=== PATIENT | female | born 1940 | race Caucasian/White ===

== ENCOUNTER 2018-08-16 11:04 | Day surgery (SDC) | payer MEDICARE ==
[~2018-08-16] VITALS: Ht 172.7 cm; Wt 62.0 kg
[2018-08-16] MEDS ORDERED: SODIUM CHLORIDE 0.9% 1,000 ML IV ONE (12:09)
[2018-08-16] MEDS ORDERED: METO25TA91 PO (12:26)
[2018-08-16] MEDS ORDERED: TRIA60LO9 TP (12:26)
[2018-08-16] MEDS ORDERED: IBUP200C8 PO (12:26)
[2018-08-16 12:51] LABS: BASOPHILS # (AUTO) 0.03 x10^3/uL (0-0.1); BASOPHILS % (AUTO) 1 % (0-1); EOSINOPHILS # (AUTO) 0.12 x10^3/uL (0-0.4); EOSINOPHILS % (AUTO) 2 % (1-7); LYMPHOCYTES % (AUTO) 20 % (22-44); MD NO; MEAN CORPUSCULAR HEMOGLOBIN 31.9 pg (27.0-34.8); MEAN CORPUSCULAR HGB CONC 33.3 g/dL (32.4-35.8); MEAN CORPUSCULAR VOLUME 95.6 fL (80-100); MEAN PLATELET VOLUME 9.4 fL (7.4-10.4); MONOCYTES # (AUTO) 0.46 x10^3/uL (0.2-0.8); MONOCYTES % (AUTO) 8 % (2-9); NEUTROPHILS # (AUTO) 3.94 x10^3/uL (1.8-6.8); NEUTROPHILS % (AUTO) 70 % (42-75); PLATELET COUNT 195 x10^3/uL (130-400); RED BLOOD COUNT 4.27 x10^6/uL (3.82-5.3); RED CELL DISTRIBUTION WIDTH 13.9 % (9.6-15.2)
[2018-08-16] MEDS ORDERED: MIDAZOLAM 1 MG/ML, 2ML ONE (14:30)
[2018-08-16] MEDS ORDERED: FENTANYL PF 100 MCG/2ML ONE (14:31)
[2018-08-16] MEDS ORDERED: VERAPAMIL 2.5 MG/ML, 2ML ONE (14:31)
[2018-08-16] MEDS ORDERED: HEPARIN 1,000 UNITS/ML, 10ML ONE (14:32)
[2018-08-16] MEDS ORDERED: SODIUM CHLORIDE 0.9% 1,000 ML IV SCH (15:20)
== END 2018-08-16 17:05 | disposition home or self-care (01) ==
LOC: EDSEX 11:04 → CACL 11:04
PROVIDERS: ATTEND Internal Medicine Cardiovascular Disease
DX: I20.8 Other forms of angina pectoris (principal); I47.1 Supraventricular tachycardia; Z98.890 Other specified postprocedural states
CPT/HCPCS: 36415; 85025; 93458; 99156; C1769; C1894; J1644; J2250; J3010; Q9967

== ENCOUNTER 2019-07-20 12:13 | Outpatient (CLI) | payer MEDICARE ==
[~2019-07-20 12:13] MED LIST: IBUP200C8 PO; METO25TA91 PO; TRIA60LO9 TP
[2019-07-20] MEDS ORDERED: OMNIPAQUE 350 MG/ML, 150 ML BOTTLE ONE (13:45)
[2019-07-20] MEDS ORDERED: DIGO125T76 PO (14:44)
[2019-07-20] MEDS ORDERED: aspirin PO (14:44)
[2019-07-20] MEDS ORDERED: FLEC50TA25 PO (14:44)
[2019-07-21] MEDS ORDERED: APIX5TAB PO (06:46)
== END 2019-07-20 23:59 | disposition home or self-care (01) ==
LOC: CFH 12:13
PROVIDERS: ATTEND Internal Medicine Cardiovascular Disease
DX: I48.91 Unspecified atrial fibrillation (principal); I47.1 Supraventricular tachycardia; Z82.49 Family history of ischemic heart disease and other diseases of the circulatory system
CPT/HCPCS: 71046; 75572; Q9967

== ENCOUNTER 2019-07-21 06:30 | Observation (INO) | payer MEDICARE ==
[2019-07-20 15:01] LABS: ALANINE AMINOTRANSFERASE 20 U/L (12-78); ALBUMIN 4.1 g/dL (3.4-5.0); ANION GAP 2 mmol/L (5-15); CHLORIDE 106 mmol/L (98-107); CREATININE 0.91 mg/dL (0.55-1.02)
[2019-07-20 15:04] LABS: ALKALINE PHOSPHATASE 82 U/L (45-117); BILIRUBIN,TOTAL 0.5 mg/dL (0.2-1.0); TOTAL PROTEIN 7.2 g/dL (6.4-8.2)
[2019-07-20 15:06] LABS: BASOPHILS # (AUTO) 0.07 x10^3/uL (0-0.1); BASOPHILS % (AUTO) 1 % (0-1); EOSINOPHILS # (AUTO) 0.19 x10^3/uL (0-0.4); EOSINOPHILS % (AUTO) 3 % (1-7); LYMPHOCYTES # (AUTO) 1.33 x10^3/uL (1-3.4); LYMPHOCYTES % (AUTO) 24 % (22-44); MD NO; MEAN CORPUSCULAR HEMOGLOBIN 33.3 pg (27.0-34.8); MEAN CORPUSCULAR HGB CONC 32.9 g/dL (32.4-35.8); MEAN CORPUSCULAR VOLUME 101.1 fL (80-100); MEAN PLATELET VOLUME 8.7 fL (7.4-10.4); MONOCYTES # (AUTO) 0.46 x10^3/uL (0.2-0.8); MONOCYTES % (AUTO) 8 % (2-9); NEUTROPHILS # (AUTO) 3.51 x10^3/uL (1.8-6.8); NEUTROPHILS % (AUTO) 63 % (42-75); PLATELET COUNT 243 x10^3/uL (130-400); RED BLOOD COUNT 4.44 x10^6/uL (3.82-5.3); RED CELL DISTRIBUTION WIDTH 14.2 % (9.6-15.2)
[~2019-07-21] VITALS: Ht 172.7 cm; Wt 60.9 kg
[~2019-07-21 06:30] MED LIST changes: +DIGO125T76 PO; +FLEC50TA25 PO; +aspirin PO
[2019-07-21] MEDS ORDERED: SODIUM CHLORIDE 0.9% 1,000 ML IV SCH (06:43)
[2019-07-21] MEDS ORDERED: APIX5TAB PO (06:46)
[2019-07-21] MEDS ORDERED: LIDOCAINE 1%, 20ML ONE (07:01)
[2019-07-21] MEDS ORDERED: MIDAZOLAM 1 MG/ML, 2ML ONE (08:05)
[2019-07-21] MEDS ORDERED: FENTANYL PF 250 MCG/5ML ONE (08:05)
[2019-07-21] MEDS ORDERED: HEPARIN 1,000 UNITS/ML, 30ML ONE (08:06)
[2019-07-21] MEDS ORDERED: PROPOFOL 10 MG/ML, 20ML ONE (08:06)
[2019-07-21] MEDS ORDERED: ONDANSETRON 2MG/ML, 2ML ONE (08:06)
[2019-07-21] MEDS ORDERED: EPHEDRINE 50 MG/ML, 1ML ONE (08:06)
[2019-07-21] MEDS ORDERED: SUCCINYLCHOLINE 20 MG/ML, 10ML ONE (08:08)
[2019-07-21] MEDS ORDERED: ROCURONIUM 10MG/ML,5ML ONE (08:09)
[2019-07-21] MEDS ORDERED: PHENYLEPHRINE 10 MG/ML ONE (08:25)
[2019-07-21] MEDS ORDERED: DEXAMETHASONE 4 MG/ML, 1ML ONE ×2 (08:40)
[2019-07-21] MEDS ORDERED: ISOPROTERENOL 0.2MG/ML, 5ML ONE (08:58)
[2019-07-21] MEDS ORDERED: ADENOSINE 6 MG/2 ML ONE ×2 (09:07)
[2019-07-21] MEDS ORDERED: VASOPRESSIN 20 UNIT/ML, 1ML ONE (10:33)
[2019-07-21] MEDS ORDERED: APIXABAN 5 MG TABLET ONE (11:30)
[2019-07-21] MEDS: APIXABAN 5 MG TABLET PO SCH ×3 (12:00→21:24)
[2019-07-21] MEDS ORDERED: EPHEDRINE 50 MG/ML, 1ML IVPush PRN (12:00)
[2019-07-21] MEDS ORDERED: hydrALAzine 20 MG/ML, 1ML IV PRN (12:00)
[2019-07-21] MEDS ORDERED: FENTANYL PF 100 MCG/2ML IV PRN (12:00)
[2019-07-21] MEDS ORDERED: OXYcodone 5 MG/5 ML ORAL.SOL UDC PO PRN (12:00)
[2019-07-21] MEDS ORDERED: MEPERIDINE/PF 25MG/ML,1ML IVPush PRN (12:00)
[2019-07-21] MEDS ORDERED: LABETALOL 5MG/ML, 20ML IV PRN (12:00)
[2019-07-21] MEDS ORDERED: HYDROmorphone 2 MG/ML, 1ML IVPush PRN (12:00)
[2019-07-21] MEDS ORDERED: MIDAZOLAM 1 MG/ML, 2ML IV PRN (12:00)
[2019-07-21] MEDS ORDERED: ALBUTEROL SULFATE 2.5 MG/3 ML NPPB PRN (12:00)
[2019-07-21] MEDS ORDERED: PROMETHAZINE 12.5 MG SUPP PR PRN (12:00)
[2019-07-21] MEDS ORDERED: ONDANSETRON ODT 8 MG PO PRN (12:00)
[2019-07-21] MEDS ORDERED: ACETAMINOPHEN 325 MG TABLET PO PRN (12:00)
[2019-07-21] MEDS ORDERED: HALOPERIDOL 5 MG/ML IV PRN (12:00)
[2019-07-21] MEDS ORDERED: DIAZEPAM 5 MG/ML, 2ML IVPush PRN (12:00)
[2019-07-21] MEDS ORDERED: PROMETHAZINE 25 MG/ML, 1ML IV PRN (12:00)
[2019-07-21] MEDS ORDERED: ONDANSETRON 2MG/ML, 2ML IV PRN (12:00)
[2019-07-21] MEDS: SOTALOL 80MG TABLET PO SCH ×2 (13:35→17:50)
[2019-07-21 15:15] VITALS: BP 114/71
[2019-07-21] MEDS ORDERED: SOTALOL 80MG TABLET PO SCH (18:00)
[2019-07-21 20:05] VITALS: BP 106/67
[2019-07-22] MEDS: ACETAMINOPHEN 325 MG TABLET PO PRN ×3 (00:29→13:36)
[2019-07-22 01:09] VITALS: BP 99/59
[2019-07-22] MEDS: SOTALOL 80MG TABLET PO SCH (05:39)
[2019-07-22 07:58] VITALS: BP 102/62
[2019-07-22] MEDS: APIXABAN 5 MG TABLET PO SCH (08:31)
[2019-07-22] MEDS ORDERED: ONDANSETRON 2MG/ML, 2ML IVPush PRN (10:30)
[2019-07-22 12:58] VITALS: BP 109/66
[2019-07-22] MEDS ORDERED: SOTA80TA18 PO (14:45)
== END 2019-07-22 16:20 | disposition home or self-care (01) ==
LOC: CACL 06:30 → ORIP 11:41 → 5SO 15:12 → DCLOUNGE 07-22 16:20
PROVIDERS: ADMIT Internal Medicine Cardiovascular Disease; ATTEND Internal Medicine Cardiovascular Disease
DX: I48.91 Unspecified atrial fibrillation (principal); I47.1 Supraventricular tachycardia
CPT/HCPCS: 36415; 80053; 85025; 85347; 86850; 86900; 93005; 93306; 93312; 93321; 93325; 93613; 93655; 93656; 93657; 93662; C1730; C1731; C1759; C1766; C1893; C1894; C2630; G0378; J0153; J0330; J1100; J1644; J2250; J2370; J2405; J2704; J3010; J3490

== ENCOUNTER 2020-08-16 10:13 | Day surgery (SDC) | payer MEDICARE ==
[~2020-08-16] VITALS: Ht 172.7 cm; Wt 61.4 kg
[~2020-08-16 10:13] MED LIST changes: +APIX5TAB PO; +SOTA80TA18 PO
[2020-08-16] MEDS ORDERED: PROPOFOL 10 MG/ML, 20ML ONE (10:34)
[2020-08-16 10:48] VITALS: BP 145/106
[2020-08-16] MEDS ORDERED: SOTA120T26 PO (10:57)
[2020-08-16] MEDS ORDERED: LEVO50TA5 PO (10:57)
[2020-08-16] MEDS ORDERED: SODIUM CHLORIDE 0.9% 1,000 ML IV ONE (11:00)
[2020-08-16 11:11] LABS: ANION GAP 2 mmol/L (5-15); CALCIUM 9.2 mg/dL (8.5-10.1); CHLORIDE 110 mmol/L (98-107)
[2020-08-16] MEDS ORDERED: MIDAZOLAM 1 MG/ML, 2ML ONE (13:02)
== END 2020-08-16 14:37 | disposition home or self-care (01) ==
LOC: CACL 10:13
PROVIDERS: ATTEND Internal Medicine Cardiovascular Disease
DX: I48.91 Unspecified atrial fibrillation (principal); I34.0 Nonrheumatic mitral (valve) insufficiency; I47.1 Supraventricular tachycardia; K21.9 Gastro-esophageal reflux disease without esophagitis; Z79.01 Long term (current) use of anticoagulants; Z79.899 Other long term (current) drug therapy; Z20.828 Contact with and (suspected) exposure to other viral communicable diseases
CPT/HCPCS: 36415; 80048; 87635; 92960; 93312; 93321; 93325; J2250; J2704

== ENCOUNTER 2020-11-08 10:04 | Day surgery (SDC) | payer MEDICARE ==
[~2020-11-08] VITALS: Ht 172.7 cm; Wt 59.0 kg
[~2020-11-08 10:04] MED LIST changes: +LEVO50TA5 PO; +SOTA120T26 PO
[2020-11-08 10:25] VITALS: BP 138/95
[2020-11-08] MEDS ORDERED: FLEC50TA25 PO (10:37)
[2020-11-08] MEDS ORDERED: DILT240C77 PO (10:37)
[2020-11-08] MEDS ORDERED: FLECAINIDE 100MG TABLET ONE (10:40)
[2020-11-08 10:50] LABS: ANION GAP 6 mmol/L (5-15); CALCIUM 9.4 mg/dL (8.5-10.1); CHLORIDE 109 mmol/L (98-107); CREATININE 1.04 mg/dL (0.55-1.02)
[2020-11-08] MEDS ORDERED: PROPOFOL 10 MG/ML, 20ML ONE (11:40)
== END 2020-11-08 12:56 | disposition home or self-care (01) ==
LOC: CACL 10:04
PROVIDERS: ATTEND Internal Medicine Cardiovascular Disease
DX: I48.0 Paroxysmal atrial fibrillation (principal); Z79.01 Long term (current) use of anticoagulants; Z79.890 Hormone replacement therapy; Z79.899 Other long term (current) drug therapy
CPT/HCPCS: 36415; 80048; 92960; J2704

== ENCOUNTER 2021-01-16 06:17 | Observation (INO) | payer MEDICARE ==
[~2021-01-16] VITALS: Ht 172.7 cm; Wt 59.5 kg
[~2021-01-16 06:17] MED LIST changes: +DILT240C77 PO
[2021-01-16 06:55] VITALS: BP 150/87
[2021-01-16] MEDS ORDERED: SODIUM CHLORIDE 0.9% 1,000 ML IV SCH (07:00)
[2021-01-16 07:33] LABS: BASOPHILS % (AUTO) 2 % (0-1); EOSINOPHILS % (AUTO) 5 % (1-7); LYMPHOCYTES % (AUTO) 30 % (22-44); MD NO; MEAN CORPUSCULAR HEMOGLOBIN 33.1 pg (27.0-34.8); MEAN CORPUSCULAR HGB CONC 34.3 g/dL (32.4-35.8); MEAN PLATELET VOLUME 8.4 fL (7.4-10.4); MONOCYTES % (AUTO) 10 % (2-9); NEUTROPHILS % (AUTO) 53 % (42-75); PLATELET COUNT 224 x10^3/uL (130-400); RED BLOOD COUNT 4.41 x10^6/uL (3.82-5.3); RED CELL DISTRIBUTION WIDTH 13.5 % (9.6-15.2)
[2021-01-16 07:41] LABS: ANION GAP 4 mmol/L (5-15); CALCIUM 9.3 mg/dL (8.5-10.1); CHLORIDE 110 mmol/L (98-107); CREATININE 1.07 mg/dL (0.55-1.02)
[2021-01-16] MEDS ORDERED: LIDOCAINE 1%, 20ML ONE (08:21)
[2021-01-16] MEDS ORDERED: FENTANYL PF 250 MCG/5ML ONE (08:32)
[2021-01-16] MEDS ORDERED: MIDAZOLAM 1 MG/ML, 2ML ONE (08:32)
[2021-01-16] MEDS ORDERED: EPHEDRINE 50 MG/ML, 1ML ONE (08:43)
[2021-01-16] MEDS ORDERED: DEXAMETHASONE 4 MG/ML, 1ML ONE (08:59)
[2021-01-16] MEDS ORDERED: SUCCINYLCHOLINE 20 MG/ML, 10ML ONE (08:59)
[2021-01-16] MEDS ORDERED: HEPARIN 1,000 UNITS/ML, 10ML ONE (08:59)
[2021-01-16] MEDS ORDERED: ROCURONIUM 10MG/ML,5ML ONE (08:59)
[2021-01-16] MEDS ORDERED: PROPOFOL 10 MG/ML, 20ML ONE (08:59)
[2021-01-16] MEDS ORDERED: GLYCOPYRROLATE 0.2MG/1ML, 5ML ONE (10:42)
[2021-01-16] MEDS ORDERED: NEOSTIGMINE 1 MG/ML, 10ML ONE (10:42)
[2021-01-16] MEDS ORDERED: ALBUTEROL SULFATE 2.5 MG/3 ML NPPB PRN (11:00)
[2021-01-16] MEDS ORDERED: hydrALAzine 20 MG/ML, 1ML IV PRN (11:00)
[2021-01-16] MEDS ORDERED: ACETAMINOPHEN 325 MG TABLET PO PRN ×2 (11:00)
[2021-01-16] MEDS ORDERED: MEPERIDINE/PF 25MG/0.5ML IVPush PRN (11:00)
[2021-01-16] MEDS ORDERED: ZOLPIDEM 5MG TABLET PO PRN (11:00)
[2021-01-16] MEDS ORDERED: DIAZEPAM 5 MG/ML, 2ML IVPush PRN (11:00)
[2021-01-16] MEDS ORDERED: PROMETHAZINE 12.5 MG SUPP PR PRN (11:00)
[2021-01-16] MEDS ORDERED: HYDROmorphone 1 MG/ML, 1ML INJ IVPush PRN (11:00)
[2021-01-16] MEDS ORDERED: EPHEDRINE 50 MG/ML, 1ML IVPush PRN (11:00)
[2021-01-16] MEDS ORDERED: OXYcodone 5 MG/5 ML ORAL.SOL UDC PO PRN (11:00)
[2021-01-16] MEDS ORDERED: ONDANSETRON 2MG/ML, 2ML IVPush PRN (11:00)
[2021-01-16] MEDS ORDERED: APIXABAN 5 MG TABLET PO SCH (11:00)
[2021-01-16] MEDS ORDERED: DIPHENHYDRAMINE 50 MG/ML, 1ML IVPush PRN ×2 (11:00)
[2021-01-16] MEDS ORDERED: FENTANYL PF 100 MCG/2ML IV PRN (11:00)
[2021-01-16] MEDS ORDERED: PROMETHAZINE 25 MG/ML, 1ML IVPush PRN (11:00)
[2021-01-16] MEDS ORDERED: MIDAZOLAM 1 MG/ML, 2ML IV PRN (11:00)
[2021-01-16] MEDS ORDERED: LABETALOL 5MG/ML, 20ML IV PRN (11:00)
[2021-01-16] MEDS ORDERED: APIXABAN 5 MG TABLET ONE (11:14)
[2021-01-16] MEDS: APIXABAN 5 MG TABLET PO SCH ×2 (11:55→21:08)
[2021-01-16] MEDS: FLECAINIDE 100MG TABLET PO SCH (12:56)
[2021-01-16 14:00] VITALS: BP 122/70
[2021-01-16 19:51] VITALS: BP 131/77
[2021-01-16] MEDS: COLCHICINE 0.6 MG CAPSULE PO SCH (21:08)
[2021-01-17] MEDS: FLECAINIDE 100MG TABLET PO SCH ×2 (00:34→11:35)
[2021-01-17 01:20] VITALS: BP 134/72
[2021-01-17 07:20] VITALS: BP 132/76
[2021-01-17] MEDS: APIXABAN 5 MG TABLET PO SCH (08:32)
[2021-01-17] MEDS: COLCHICINE 0.6 MG CAPSULE PO SCH (08:32)
[2021-01-17] MEDS ORDERED: DILTIAZEM 240 MG CAP.ER.24H PO SCH (09:00)
[2021-01-17] MEDS ORDERED: LEVOTHYROXINE 25 MCG TABLET PO SCH (09:00)
[2021-01-17] MEDS ORDERED: FLEC100T PO (11:53)
[2021-01-17] MEDS ORDERED: COLC0.6C3 PO (11:53)
== END 2021-01-17 12:50 | disposition home or self-care (01) ==
LOC: CACL 06:17 → 5SO 10:49 → CACL 12:31 → DCLOUNGE 01-17 12:38
PROVIDERS: ADMIT Internal Medicine Cardiovascular Disease; ATTEND Internal Medicine Cardiovascular Disease
DX: I48.0 Paroxysmal atrial fibrillation (principal); Z20.822 Contact with and (suspected) exposure to COVID-19; I48.4 Atypical atrial flutter; E03.9 Hypothyroidism, unspecified; Z79.01 Long term (current) use of anticoagulants; Z79.899 Other long term (current) drug therapy
CPT/HCPCS: 36415; 71046; 80048; 85025; 85347; 93308; 93312; 93321; 93325; 93613; 93655; 93656; 93657; 93662; C1730; C1732; C1759; C1766; C1893; C1894; G0378; J1100; J1644; J2250; J2704; J2710; J3010; J3490; U0003; J0330